=== PATIENT | female | born 1980 | race Caucasian/White ===

== ENCOUNTER 2019-01-08 06:10 | Day surgery (SDC) | payer OTHER ==
[~2019-01-08 06:10] MED LIST: PROVERA2.5 MG PO
[2019-01-08] MEDS ORDERED: Tylenol #3 PO (10:37)
[2019-01-08] MEDS ORDERED: DOXYCYCLINE HY100 M2 PO (10:37)
== END 2019-01-08 14:45 | disposition home or self-care (01) ==
LOC: CIR.AMB 06:10
DX: N84.0 Polyp of corpus uteri (principal); D25.0 Submucous leiomyoma of uterus